=== PATIENT | female | born 1995 | race African-American/Black ===

== ENCOUNTER 2017-05-17 06:55 | Emergency (ER) | payer SELFPAY ==
[~2017-05-17] VITALS: Ht 177.8 cm; Wt 89.0 kg
[2017-05-17 07:01] VITALS: BP 130/75; PULSE 63; RESP 18; TEMP 98.4; O2SAT 100
--- NOTE | 2017-05-17 07:33 | PD ---
HPI Chief Complaint: ENT Complaint Time Seen by Provider: 07:31 Travel History International Travel<30 days: No Contact w/Intl Traveler<30days: No Traveled to known affect area: No History of Present Illness HPI The patient was seen and examined in the presence of the nurse. She complains of runny nose and congestion for one week. She has some postnasal drip. Denies productive cough or documented fever. Symptoms severity is mild PFSH Past Medical History ?: Not LMP: NOW Social History Alcohol Use: No Tobacco Use: No Substance Use: No Allergies-Medications (Allergen,Severity, Reaction): Coded Allergies: No Known Allergies (Unverified , 05/17/17) Reported Meds & Prescriptions Reported Meds & Active Scripts Active No Active Prescriptions or Reported Medications Review of Systems General / Constitutional: No: Fever HENT: No: Headaches Cardiovascular: No: Chest Pain or Discomfort Respiratory: No: Shortness of Breath Physical Exam Narrative RESPIRATORY: Respiratory effort unlabored, no retractions or use of accessory muscles. Breath sounds are clear and symmetric. Throat clear TMs normal GASTROINTESTINAL: Abdomen soft, non-tender, nondistended. Positive bowel sounds. No hepato-splenomegaly, or palpable masses. No guarding. Data Data Last Documented VS Vital Signs Date Time Temp Pulse Resp B/P (MAP) Pulse Ox O2 Delivery O2 Flow Rate FiO2 05/17/17 07:01 98.4 63 18 130/75 (93) 100 MDM Medical Decision Making Medical Screen Exam Complete: Yes Emergency Medical Condition: Yes Medical Record Reviewed: Yes Differential Diagnosis URI, pharyngitis, bronchitis Narrative Course I have reviewed the patient's electronic medical record. Presentation consistent with viral URI. Supportive care discussed. I don't see indication for antibiotics. Diagnosis Primary Impression: Viral URI Additional Instructions: The patient was advised to follow up with their physician and return if they worsen. Med/Other Pt SpecificInfo: Other Scripts No Active Prescriptions or Reported Meds Disposition: 01 DISCHARGE HOME Condition: Stable Duran Kelsey MD May 17, 2017 07:33
== END 2017-05-17 07:50 | disposition home or self-care (01) ==
LOC: PHED 06:55
DX: J06.9 Acute upper respiratory infection, unspecified (principal); B97.89 Other viral agents as the cause of diseases classified elsewhere
CPT/HCPCS: 99282